=== PATIENT | male | born 1965 | race Asian ===

== ENCOUNTER → 2021-06-19 | Outpatient (CLI) | payer OTHER ==
--- NOTE | 2021-06-19 16:53 | CARD ---
MR#: [id number] Date of Study: 06/19/2021 Ordering Physician: SULLY ROSENTHAL, Referring Physician: Gt JIMENEZ: Jesusita Roper RDCS APPROVED REPORT INDICATION Chest Pain Reason : Patient complained of pain PROCEDURE The patient underwent an Exercise Stress Test using the Scott Protocol. Blood pressure, heart rate, a nd EKG were monitored. An Echocardiogram was performed by marine fisheries technician in four stages in quad fashion. At peak stress four se lected images were obtained and placed side by side with resting images for comparison. STRESS ECHO FINDINGS The resting Echocardiogram showed normal left ventricular systolic contractility with an estimated Ej ection Fraction of about 55 %. The Resting Echocardiogram showed normal augmentation of myocardial wall segments using a 16 segment model. The Stress Echocardiogram showed normal augmentation of myocardial wall segments using a 16 segment m eunice. The Stress Echocardiogram left ventricular systolic contractility has an estimated Ejection Fraction of about 65%. Test Type: Exercise Stress Nurse/Tech: Tiara Archer R.N. Test Indications: chest pain Cardiac History and Allergies: none Medications: none Medical History: none Resting ECG: sr Resting Heart Rate: 64 bpm Resting Blood Pressure: 139/81mmHg Pretest Chest Pain: No chest pain Nurse/Tech Notes lungs cta, heart tones regular Stress Symptoms No chest pain or symptoms. POST EXERCISE Reason for Termination: Reached target heart rate Target HR: Yes Max HR: 169 bpm 102% of Maximum Predicted HR: 166 bpm Exercise duration: 10:02 min:sec, 4 Stage Exercise capacity: 12.8METs Max Blood Pressure: 234/73mmHg Blood Pressure response to exercise: Normal blood pressure response during stress. Heart Rate response to exercise: normal Chest Pain: No. Arrhythmia: Yes. PACs INTERPRETATION Stress EKG Conclusion: The resting EKG shows a sinus rhythm with minimal nonspecific ST segment tubbs es. The stress EKG shows no significant changes from baseline. No EKG evidence of stress-induced ischemia. <Conclusion> Good exercise tolerance. No reported chest pain with exertion. No EKG evidence of stress-induced ischemia. Normal left ventricular systolic function on echocardiogram at rest. Normal left ventricular response to exertion with no regional wall motion abnormalities. Low risk treadmill stress echo. Signed by : Maikel Finley MD Electronically Approved : 06/19/2021 16:52:55
== END ==
LOC: ECHO 12:02
PROVIDERS: ATTEND Internal Medicine Cardiovascular Disease
DX: R07.9 Chest pain, unspecified (principal)
CPT/HCPCS: 93017; 93350